=== PATIENT | male | born 1955 | race Caucasian/White ===

== ENCOUNTER → 2022-06-23 | Day surgery (SDC) | payer OTHER ==
[~2022-06-23] MED LIST: Citric Acid/Sodium Citrate Solution 30 ML Cup ONE; Lactated Ringers 1,000 ML IV SCH; Propofol 200 MG/20 ML SDV ONE; fentaNYL 100 MCG/2 ML SDV ONE
== END ==
LOC: VM.SDS 06:00
PROVIDERS: ATTEND Family Medicine
DX: K29.70 Gastritis, unspecified, without bleeding (principal); K44.9 Diaphragmatic hernia without obstruction or gangrene; K31.7 Polyp of stomach and duodenum; D13.2 Benign neoplasm of duodenum; E11.9 Type 2 diabetes mellitus without complications; I10 Essential (primary) hypertension; J43.9 Emphysema, unspecified; G47.33 Obstructive sleep apnea (adult) (pediatric); E78.5 Hyperlipidemia, unspecified; E66.9 Obesity, unspecified; K21.9 Gastro-esophageal reflux disease without esophagitis; N17.9 Acute kidney failure, unspecified; Z88.8 Allergy status to other drugs, medicaments and biological substances; Z98.890 Other specified postprocedural states; Z79.82 Long term (current) use of aspirin; Z79.899 Other long term (current) drug therapy; Z68.28 Body mass index [BMI] 28.0-28.9, adult
CPT/HCPCS: 00731; A9270-GY; J2704; J3010; J7120

== ENCOUNTER 2024-10-26 10:11 | Inpatient (IN) | payer MEDICARE, OTHER ==
[2024-10-26] MEDS: Acetaminophen/HYDROcodone 325-5 MG Tab PO ONE (10:57)
[2024-10-26 12:04] LABS: CALCIUM 7.8 mg/dL (8.5-10.1); CREATININE 1.4 mg/dL (0.70-1.30); EST CRCL DRUG DOSING (CG) 56.2 mL/min
[2024-10-26 12:06] LABS: ANION GAP 14.9 mmol/L (5-15); POTASSIUM,K 2.9 mmol/L (3.5-5.1)
[2024-10-26] MEDS: Potassium Chloride 20 MEQ Tab.ER PO ONE (12:25)
[2024-10-26] MEDS: Sodium Chloride 0.9% 1,000 ML IV ONE (12:35)
[2024-10-26] MEDS: Ondansetron 4 MG/2 ML SDV IVPUSH ONE (12:39)
[2024-10-26] MEDS: Iopamidol 755 Mg/ML 100 ML Bottle IVPUSH ONE (12:44)
[2024-10-26 13:09] LABS: HEMATOCRIT 40.9 % (40.0-52.0); HEMOGLOBIN 14.8 g/dL (14.0-18.0); MEAN CORPUSCULAR HEMOGLOBIN 32.4 pg (26.0-32.0); MEAN CORPUSCULAR HGB CONC 36.2 g/dL (32.0-36.0); MEAN CORPUSCULAR VOLUME 89.5 fL (78.0-93.0); PLATELET COUNT,PLT 336 x10^3/uL (130-400); RED BLOOD CELL COUNT 4.57 x10^6/uL (4.5-6.0)
[2024-10-26 13:13] LABS: WHITE BLOOD CELL COUNT,WBC 21.8 x10^3/uL (4.0-10.0)
[2024-10-26 13:17] LABS: LYMPHOCYTES ABSOLUTE MAN 0.7 x10^3/uL (1.0-4.8); LYMPHOCYTES PERCENT MAN 3 % (25-50); MONOCYTES ABSOLUTE MAN 2.4 x10^3/uL (0.0-0.8); MONOCYTES PERCENT MAN 11 % (2-11); NEUTROPHILS ABSOLUTE MAN 18.7 x10^3/uL (1.8-7.7); PLATELET COUNT ESTIMATE ADEQUATE; SEG NEUTROPHILS PERCENT MAN 86 % (50-80)
[2024-10-26 13:23] LABS: INR 1.1 (0.9-1.1); PROTHROMBIN TIME 11.8 SEC (9.6-12.0)
[2024-10-26 13:30] LABS: BILIRUBIN TOTAL 1.2 mg/dL (0.2-1.0)
[2024-10-26] MEDS ORDERED: Heparin Sodium/0.45% NaCl 25,000 UNITS/500 ML BAG IV SCH (13:30)
[2024-10-26 13:43] LABS: A/G RATIO 0.74; ALBUMIN 3.2 g/dL (3.4-5.0); BILIRUBIN DIRECT 0.38 mg/dL (0.00-0.20); BILIRUBIN INDIRECT 0.82; PROTEIN TOTAL,TP 7.5 g/dL (6.4-8.2)
[2024-10-26] MEDS: Heparin Sodium 5,000 Units/ML Vial IVPUSH ONE ×2 (13:48→20:09)
[2024-10-26] MEDS: Heparin Sodium/0.45% NaCl 25,000 UNITS/500 ML BAG IV SCH (13:49)
[2024-10-26] MEDS: Piperacillin/Tazobactam 4.5 GM in Sodium Chloride 0.9% 100 ML IV ONE (13:53)
[2024-10-26] MEDS: Lactobacillus Rhamnosus GG (Probiotic) Cap PO SCH (14:53)
[2024-10-26] MEDS: Acetaminophen/HYDROcodone 325-5 MG Tab PO PRN (16:36)
[2024-10-26] MEDS: Rosuvastatin 20 MG Tab PO SCH (21:09)
[2024-10-26] MEDS: amLODIPine 10 MG Tab PO SCH (21:10)
[2024-10-27] MEDS: Heparin Sodium 5,000 Units/ML Vial IVPUSH ONE (02:57)
[2024-10-27 08:27] LABS: BASOPHILS PERCENT AUTO 0.2 % (0.2-1.2); EOSINOPHILS ABSOLUTE AUTO 0.1 x10^3/uL (0.0-0.5); EOSINOPHILS PERCENT AUTO 0.5 % (0.0-4.0); HEMATOCRIT 34.4 % (40.0-52.0); HEMOGLOBIN 12.3 g/dL (14.0-18.0); IMMATURE GRAN ABSOLUTE AUTO 0.05 x10^3/uL (0.00-0.07); LYMPHOCYTES ABSOLUTE AUTO 1.2 x10^3/uL (1.0-4.8); LYMPHOCYTES PERCENT AUTO 9.9 % (25.0-50.0); MEAN CORPUSCULAR HEMOGLOBIN 32.6 pg (26.0-32.0); MEAN CORPUSCULAR HGB CONC 35.8 g/dL (32.0-36.0); MEAN CORPUSCULAR VOLUME 91.2 fL (78.0-93.0); MONOCYTES ABSOLUTE AUTO 1.2 x10^3/uL (0.0-0.8); MONOCYTES PERCENT AUTO 9.8 % (2.0-11.0); NEUTROPHILS ABSOLUTE AUTO 9.8 x10^3/uL (1.8-7.7); NEUTROPHILS PERCENT AUTO 79.2 % (50.0-80.0); PLATELET COUNT,PLT 260 x10^3/uL (130-400); RED BLOOD CELL COUNT 3.77 x10^6/uL (4.5-6.0); WHITE BLOOD CELL COUNT,WBC 12.4 x10^3/uL (4.0-10.0)
[2024-10-27 08:43] LABS: A/G RATIO 0.56; ALBUMIN 2.3 g/dL (3.4-5.0); BILIRUBIN TOTAL 0.5 mg/dL (0.2-1.0); CALCIUM 7.1 mg/dL (8.5-10.1); CREATININE 1.3 mg/dL (0.70-1.30); EST CRCL DRUG DOSING (CG) 60.52 mL/min; POTASSIUM,K 3.1 mmol/L (3.5-5.1); PROTEIN TOTAL,TP 6.4 g/dL (6.4-8.2)
[2024-10-27 08:44] LABS: ANION GAP 16.1 mmol/L (5-15)
[2024-10-27] MEDS: Potassium Chloride 10 MEQ Tab.ER PO SCH (09:01)
[2024-10-27] MEDS: Rosuvastatin 20 MG Tab PO SCH (09:01)
[2024-10-27] MEDS: cefTRIAXone 1 GM Vial IVPUSH SCH (09:01)
[2024-10-27] MEDS: Omeprazole 20 MG Cap.CR PO SCH (09:02)
[2024-10-27] MEDS: amLODIPine 10 MG Tab PO SCH (09:06)
[2024-10-27] MEDS: Losartan 25 MG Tab PO SCH (09:06)
[2024-10-27] MEDS: Metoprolol Succinate 25 MG Tab.ER PO SCH (09:06)
[2024-10-27] MEDS: Apixaban 5 MG Tab PO SCH (09:09)
[2024-10-27] MEDS: Ondansetron 4 MG Tab.DIS PO PRN (17:41)
[2024-10-27] MEDS: Sodium Chloride 0.9% 10 ML Syringe FLUSH SCH (20:53)
[2024-10-28 08:36] LABS: BASOPHILS ABSOLUTE AUTO 0.1 x10^3/uL (0.0-0.2); BASOPHILS PERCENT AUTO 0.5 % (0.2-1.2); EOSINOPHILS ABSOLUTE AUTO 0.1 x10^3/uL (0.0-0.5); EOSINOPHILS PERCENT AUTO 0.9 % (0.0-4.0); HEMATOCRIT 35.3 % (40.0-52.0); HEMOGLOBIN 12.5 g/dL (14.0-18.0); IMMATURE GRAN ABSOLUTE AUTO 0.02 x10^3/uL (0.00-0.07); LYMPHOCYTES ABSOLUTE AUTO 0.9 x10^3/uL (1.0-4.8); LYMPHOCYTES PERCENT AUTO 9.6 % (25.0-50.0); MEAN CORPUSCULAR HEMOGLOBIN 32.6 pg (26.0-32.0); MEAN CORPUSCULAR HGB CONC 35.4 g/dL (32.0-36.0); MEAN CORPUSCULAR VOLUME 92.2 fL (78.0-93.0); MONOCYTES ABSOLUTE AUTO 0.9 x10^3/uL (0.0-0.8); MONOCYTES PERCENT AUTO 9.5 % (2.0-11.0); NEUTROPHILS ABSOLUTE AUTO 7.8 x10^3/uL (1.8-7.7); NEUTROPHILS PERCENT AUTO 79.3 % (50.0-80.0); PLATELET COUNT,PLT 270 x10^3/uL (130-400); RED BLOOD CELL COUNT 3.83 x10^6/uL (4.5-6.0); WHITE BLOOD CELL COUNT,WBC 9.8 x10^3/uL (4.0-10.0)
[2024-10-28 08:50] LABS: ALBUMIN 2.4 g/dL (3.4-5.0); CALCIUM 7.6 mg/dL (8.5-10.1); CREATININE 1.4 mg/dL (0.70-1.30); EST CRCL DRUG DOSING (CG) 56.2 mL/min; PHOSPHORUS 2.6 mg/dL (2.6-4.7); POTASSIUM,K 3.3 mmol/L (3.5-5.1)
[2024-10-28 08:52] LABS: MAGNESIUM 0.3 mg/dL (1.8-2.4)
[2024-10-28] MEDS: Albuterol/Ipratropium 3.0-0.5 MG/3 ML Neb Soln NEB SCH (09:12)
[2024-10-28] MEDS: Azithromycin 250 MG Tab PO SCH (09:39)
[2024-10-28] MEDS: VANCOmycin 125 MG Cap PO SCH (09:39)
[2024-10-28] MEDS: Magnesium Sulf/Wat 4 GM/100 mL 4 GM in Premix Bag 1 BAG IV ONE ×2 (09:40→15:18)
[2024-10-28] MEDS: Lactated Ringers 1,000 ML IV SCH (10:42)
[2024-10-28] MEDS: oxyCODONE 5 MG Tab PO PRN (15:18)
[2024-10-29 07:05] LABS: BASOPHILS PERCENT AUTO 0.5 % (0.2-1.2); EOSINOPHILS ABSOLUTE AUTO 0.1 x10^3/uL (0.0-0.5); EOSINOPHILS PERCENT AUTO 1.4 % (0.0-4.0); HEMATOCRIT 31.7 % (40.0-52.0); HEMOGLOBIN 11.3 g/dL (14.0-18.0); IMMATURE GRAN ABSOLUTE AUTO 0.02 x10^3/uL (0.00-0.07); LYMPHOCYTES PERCENT AUTO 14.3 % (25.0-50.0); MEAN CORPUSCULAR HEMOGLOBIN 32.7 pg (26.0-32.0); MEAN CORPUSCULAR HGB CONC 35.6 g/dL (32.0-36.0); MEAN CORPUSCULAR VOLUME 91.6 fL (78.0-93.0); MONOCYTES ABSOLUTE AUTO 0.9 x10^3/uL (0.0-0.8); MONOCYTES PERCENT AUTO 13.5 % (2.0-11.0); NEUTROPHILS ABSOLUTE AUTO 4.7 x10^3/uL (1.8-7.7); PLATELET COUNT,PLT 267 x10^3/uL (130-400); RED BLOOD CELL COUNT 3.46 x10^6/uL (4.5-6.0); WHITE BLOOD CELL COUNT,WBC 6.7 x10^3/uL (4.0-10.0)
[2024-10-29 07:15] LABS: CREATININE 1.2 mg/dL (0.70-1.30); EST CRCL DRUG DOSING (CG) 65.56 mL/min; POTASSIUM,K 3.4 mmol/L (3.5-5.1)
[2024-10-29 07:18] LABS: ANION GAP 12.4 mmol/L (5-15)
[2024-10-29] MEDS ORDERED: Albuterol/Ipratropium 3.0-0.5 MG/3 ML Neb Soln NEB PRN (09:21)
[2024-10-29] MEDS: Metoprolol Succinate 25 MG Tab.ER PO ONE (09:54)
[2024-10-29] MEDS: Acetaminophen 650 MG Tab.ER PO PRN (09:54)
[2024-10-30 06:54] LABS: BASOPHILS PERCENT AUTO 0.6 % (0.2-1.2); EOSINOPHILS ABSOLUTE AUTO 0.2 x10^3/uL (0.0-0.5); EOSINOPHILS PERCENT AUTO 2.2 % (0.0-4.0); HEMATOCRIT 34.6 % (40.0-52.0); HEMOGLOBIN 12.3 g/dL (14.0-18.0); IMMATURE GRAN ABSOLUTE AUTO 0.02 x10^3/uL (0.00-0.07); LYMPHOCYTES ABSOLUTE AUTO 1.3 x10^3/uL (1.0-4.8); MEAN CORPUSCULAR HEMOGLOBIN 32.3 pg (26.0-32.0); MEAN CORPUSCULAR HGB CONC 35.5 g/dL (32.0-36.0); MEAN CORPUSCULAR VOLUME 90.8 fL (78.0-93.0); MONOCYTES ABSOLUTE AUTO 1.1 x10^3/uL (0.0-0.8); MONOCYTES PERCENT AUTO 15.8 % (2.0-11.0); NEUTROPHILS ABSOLUTE AUTO 4.5 x10^3/uL (1.8-7.7); NEUTROPHILS PERCENT AUTO 63.1 % (50.0-80.0); PLATELET COUNT,PLT 284 x10^3/uL (130-400); RED BLOOD CELL COUNT 3.81 x10^6/uL (4.5-6.0); WHITE BLOOD CELL COUNT,WBC 7.1 x10^3/uL (4.0-10.0)
[2024-10-30 07:14] LABS: ALBUMIN 2.3 g/dL (3.4-5.0); CALCIUM 9.1 mg/dL (8.5-10.1); CREATININE 1.3 mg/dL (0.70-1.30); EST CRCL DRUG DOSING (CG) 60.52 mL/min; PHOSPHORUS 2.9 mg/dL (2.6-4.7); POTASSIUM,K 4.1 mmol/L (3.5-5.1)
[2024-10-30] MEDS: Metoprolol Succinate 50 MG Tab.ER PO SCH (08:09)
[2024-10-30] MEDS: Amoxicillin/Clavulanate K 875-125 MG Tab PO SCH (09:30)
[2024-10-30] MEDS: ALPRAZolam 0.25 MG Tab PO PRN (16:44)
[2024-10-31 09:14] VITALS: BP 123/83; PULSE 113
== END 2024-10-31 12:35 | disposition home or self-care (01) | DRG 175 ==
LOC: VM.ED 10:11 → VM.MS 13:28 → UNDOADMOB 13:28 → OBSVTOIN 19:18
PROVIDERS: ADMIT Family Medicine; ATTEND Internal Medicine
DX: I26.93 Single subsegmental thrombotic pulmonary embolism without acute cor pulmonale (principal); J18.9 Pneumonia, unspecified organism; J96.01 Acute respiratory failure with hypoxia; J93.9 Pneumothorax, unspecified; J44.0 Chronic obstructive pulmonary disease with (acute) lower respiratory infection; E66.9 Obesity, unspecified; Z68.26 Body mass index [BMI] 26.0-26.9, adult; E78.00 Pure hypercholesterolemia, unspecified; Z79.82 Long term (current) use of aspirin; I10 Essential (primary) hypertension; J43.2 Centrilobular emphysema; K21.9 Gastro-esophageal reflux disease without esophagitis; E66.01 Morbid (severe) obesity due to excess calories; R73.9 Hyperglycemia, unspecified; E87.6 Hypokalemia; G47.33 Obstructive sleep apnea (adult) (pediatric); E78.5 Hyperlipidemia, unspecified; E83.42 Hypomagnesemia; Z88.8 Allergy status to other drugs, medicaments and biological substances; Z72.0 Tobacco use; Z79.899 Other long term (current) drug therapy; Z98.890 Other specified postprocedural states; Z68.27 Body mass index [BMI] 27.0-27.9, adult
CPT/HCPCS: 36415; 71045; 71275; 80048; 80076; 83605; 83880; 84484; 85025; 85379; 85610; 85730; 99284; A9270 ×4; J1644 ×2; J2405; J2543; J3490; J7030; Q9967; 71046; 80053; 80069; 82947; 83735; 87428-QW; 94640; 94667; 94668; 94760; 97116-GP; 97161-GP; G0378; J0696; J3475; J7120; J7620-GY